=== PATIENT | female | born 1975 | race Caucasian/White ===

== ENCOUNTER → 2016-09-17 | Outpatient (CLI) | payer BC ==
[~2016-09-17] MED LIST: FOLIC ACID PO; MACRODANTIN50 MG/CA1 PO; OMNICEF 300MG300 MG PO; PRENATAL1 TA1 PO; [UNRECOGNIZED DRUG - OTHER] SC
== END ==
LOC: ZCOL.LAB 16:36
DX: L97.519 Non-pressure chronic ulcer of other part of right foot with unspecified severity (principal)

== ENCOUNTER → 2019-07-19 | Outpatient (CLI) | payer OTHER | LOC: ZCOL.LAB 15:18 | DX: L97.519 Non-pressure chronic ulcer of other part of right foot with unspecified severity (principal) ==